=== PATIENT | male | born 1935 | race Caucasian/White ===

== ENCOUNTER → 2021-07-11 | Outpatient (CLI) | payer MEDICARE | LOC: KOH-I 11:36 | DX: R06.02 Shortness of breath (principal); U09.9 Post COVID-19 condition, unspecified; J98.11 Atelectasis | CPT/HCPCS: 71046 ==

== ENCOUNTER 2021-11-07 11:58 | Inpatient (IN) | payer MEDICARE ==
[~2021-11-07] VITALS: Ht 182.9 cm; Wt 96.2 kg
[2021-11-07 12:38] LABS: HEMOGLOBIN 13.7 gm/dl (14.0-17.5); RED BLOOD COUNT 4.2 M/UL (4.20-5.50); WHITE BLOOD COUNT 9.1 K/UL (4.5-11.0)
[2021-11-07] MEDS ORDERED: BACTRIM DS TAB1 EACH PO (17:33)
[2021-11-07] MEDS ORDERED: AMLODIPINE BESY10 MG PO (17:33)
[2021-11-07] MEDS ORDERED: FUROSEMIDE20 MG PO (17:34)
[2021-11-07] MEDS ORDERED: LEVOTHYROXINE112 MCG PO (17:35)
[2021-11-07] MEDS ORDERED: METOPROLOL TART50 MG PO (17:35)
[2021-11-07] MEDS ORDERED: LISINOPRIL5 MG PO (17:35)
[2021-11-07] MEDS ORDERED: SPIRONOLACTONE25 MG PO (17:36)
[2021-11-07] MEDS ORDERED: ATORVASTATIN CA40 MG PO (17:36)
[2021-11-07] MEDS ORDERED: FAMOTIDINE40 MG PO (17:36)
[2021-11-07] MEDS ORDERED: GLIPIZIDE10 MG PO (17:37)
[2021-11-07] MEDS ORDERED: FEBUXOSTAT80 MG PO (17:37)
[2021-11-07] MEDS ORDERED: COLCHICINE0.6 MG PO (17:38)
[2021-11-07] MEDS ORDERED: ASPIRIN EC81 MG PO (17:38)
[2021-11-07] MEDS ORDERED: FISH OIL 1,0001 EACH PO (17:39)
[2021-11-07] MEDS ORDERED: TYLENOL EXTRA500 MG PO (17:39)
[2021-11-07] MEDS ORDERED: VITAMIN D325 MCG PO (17:40)
[2021-11-07] MEDS ORDERED: VITAMIN E400 UNI4 PO (17:41)
[2021-11-08 10:43] LABS: HEMOGLOBIN 12.6 gm/dl (14.0-17.5); RED BLOOD COUNT 3.94 M/UL (4.20-5.50); WHITE BLOOD COUNT 8.6 K/UL (4.5-11.0)
[2021-11-09 03:00] LABS: HEMOGLOBIN 12.3 gm/dl (14.0-17.5); RED BLOOD COUNT 3.91 M/UL (4.20-5.50); WHITE BLOOD COUNT 7.7 K/UL (4.5-11.0)
[2021-11-10 03:23] LABS: HEMOGLOBIN 12.4 gm/dl (14.0-17.5); RED BLOOD COUNT 4.05 M/UL (4.20-5.50); WHITE BLOOD COUNT 7.8 K/UL (4.5-11.0)
[2021-11-11 07:17] LABS: HEMOGLOBIN 12.9 gm/dl (14.0-17.5); RED BLOOD COUNT 4.04 M/UL (4.20-5.50); WHITE BLOOD COUNT 8.6 K/UL (4.5-11.0)
[2021-11-11] MEDS ORDERED: AUGMENTIN 500-1 EACH PO (12:09)
[2021-11-11] MEDS ORDERED: AMIODARONE HCL400 MG PO (12:09)
[2021-11-11] MEDS ORDERED: AMIODARONE HCL200 MG PO (12:09)
[2021-11-11] MEDS ORDERED: LOPRESSOR 25 MG25 MG PO (12:09)
[2021-11-11 14:06] LABS: BUN/CREATININE RATIO 25 (0-10)
--- NOTE | 2021-11-11 15:57 | NUR ---
PATIENTS ROOM AIR SATURATION IS 84%.
[2021-11-12 01:39] LABS: HEMOGLOBIN 12.7 gm/dl (14.0-17.5); RED BLOOD COUNT 4.04 M/UL (4.20-5.50); WHITE BLOOD COUNT 8.4 K/UL (4.5-11.0)
[2021-11-12 01:58] LABS: BUN/CREATININE RATIO 26 (0-10)
[2021-11-13 06:22] LABS: HEMOGLOBIN 12.4 gm/dl (14.0-17.5); RED BLOOD COUNT 3.9 M/UL (4.20-5.50); WHITE BLOOD COUNT 7.5 K/UL (4.5-11.0)
[2021-11-14 02:05] LABS: HEMOGLOBIN 12.4 gm/dl (14.0-17.5); RED BLOOD COUNT 3.96 M/UL (4.20-5.50); WHITE BLOOD COUNT 7.5 K/UL (4.5-11.0)
[2021-11-14] MEDS ORDERED: MYCOSTATIN100000 UTS PO (10:31)
--- NOTE | 2021-11-14 10:46 | NUR ---
ROOM AIR SAT 85%.
[2021-11-14 14:10] LABS: A/G RATIO 0.8 (0.7-1.7); ALBUMIN 2.6 g/dL (2.9-4.4); ALPHA-1-GLOBULIN 0.3 g/dL (0.0-0.4); ALPHA-2-GLOBULIN 0.9 g/dL (0.4-1.0); BETA GLOBULIN 0.8 g/dL (0.7-1.3); GAMMA GLOBULIN 1.2 g/dL (0.4-1.8); GLOBULIN, TOTAL 3.3 g/dL (2.2-3.9); IMMUNOGLOBULIN A, QN, SERUM 319 mg/dL (61-437); IMMUNOGLOBULIN G, QN, SERUM 1104 mg/dL (603-1613); IMMUNOGLOBULIN M, QN, SERUM 86 mg/dL (15-143); M-SPIKE Not Observed g/dL (Not Observed); PROTEIN, TOTAL, SERUM 5.9 g/dL (6.0-8.5)
== END 2021-11-14 12:23 | disposition home or self-care (01) | DRG 871 ==
LOC: ER1 11:58 → PROG CARE 15:28 → CDU 15:28 → M/S 22:55 → PROG CARE 11-09 17:44
PROVIDERS: Internal Medicine; Physician Assistant; ADMIT Family Medicine
PROC: 3E03329 Introduction of Other Anti-infective into Peripheral Vein, Percutaneous Approach (ICD-10-PCS; principal; 2021-11-07)
PROC: B24BZZZ Ultrasonography of Heart with Aorta (ICD-10-PCS; 2021-11-09)
DX: A41.9 Sepsis, unspecified organism (principal); J18.9 Pneumonia, unspecified organism; Z20.822 Contact with and (suspected) exposure to COVID-19; J96.21 Acute and chronic respiratory failure with hypoxia; J96.22 Acute and chronic respiratory failure with hypercapnia; N17.9 Acute kidney failure, unspecified; B37.0 Candidal stomatitis; I25.10 Atherosclerotic heart disease of native coronary artery without angina pectoris; I12.9 Hypertensive chronic kidney disease with stage 1 through stage 4 chronic kidney disease, or unspecified chronic kidney disease; N18.30 Chronic kidney disease, stage 3 unspecified; E78.5 Hyperlipidemia, unspecified; E11.22 Type 2 diabetes mellitus with diabetic chronic kidney disease; M19.90 Unspecified osteoarthritis, unspecified site; M10.9 Gout, unspecified; E83.52 Hypercalcemia; R65.20 Severe sepsis without septic shock; E11.65 Type 2 diabetes mellitus with hyperglycemia; R41.0 Disorientation, unspecified; F17.220 Nicotine dependence, chewing tobacco, uncomplicated; K21.9 Gastro-esophageal reflux disease without esophagitis; R74.01 Elevation of levels of liver transaminase levels; E86.0 Dehydration; E03.9 Hypothyroidism, unspecified; R53.81 Other malaise; M51.36 Other intervertebral disc degeneration, lumbar region; I08.3 Combined rheumatic disorders of mitral, aortic and tricuspid valves; I48.0 Paroxysmal atrial fibrillation; E11.9 Type 2 diabetes mellitus without complications; Z79.4 Long term (current) use of insulin; Z79.01 Long term (current) use of anticoagulants; Z95.1 Presence of aortocoronary bypass graft; Z90.49 Acquired absence of other specified parts of digestive tract; Z82.49 Family history of ischemic heart disease and other diseases of the circulatory system; Z79.82 Long term (current) use of aspirin
CPT/HCPCS: ECHO; 0240U; 36415; 36600; 70450; 71045; 71046; 72125; 73060; 80048; 80053; 81001; 82310; 82330; 82550; 82553; 82784; 82803; 82962; 83605; 83735; 83880; 84155; 84165; 84439; 84481; 84484; 85025; 85027; 86140; 86334; 87040; 93005; 93306; 94640; 94760; 96374; 96375; 97161; 97164; 97165; 97168; 97530; 97535; 99285; J0456; J0696; J1160; J2060; J7030